=== PATIENT | female | born 1990 | race American Indian/Alaskan Native ===

== ENCOUNTER 2018-05-10 07:32 | Emergency (ER) | payer MEDICAID ==
[2018-05-10 07:34] VITALS: BMI 24.8
[2018-05-10 07:49] VITALS: BP 121/96
[2018-05-10 08:07] LABS: BASO # 0.02 K/mm3 (0.0-2.0); BASO % 0.2 % (0.0-3.0); EOS # 0.2 (0.0-0.7); EOS % 2.1 % (1.5-5.0); GRAN # 7.63 (1.4-6.5); HEMOGLOBIN 9.7 g/dL (12.0-16.0); LYMPH # 1.9 (1.2-3.4); LYMPH % 19.1 % (22.0-35.0); MEAN CELL VOLUME 83.3 fl (80.0-105.0); MEAN CORPUSCULAR HEMOGLOBIN 26.1 pg (25.0-35.0); MEAN CORPUSCULAR HGB CONC 31.4 g/dl (31.0-37.0); MEAN PLATELET VOLUME 9.5 fl (7.0-11.0); MONO # 0.4 (0.1-0.6); MONO % 3.6 % (1.0-6.0); RBC 3.71 10^6/uL (3.5-6.1); RED CELL DISTRIBUTION WIDTH 18.8 % (11.5-14.5); WHITE BLOOD COUNT 10.2 10^3/uL (4.5-11.0)
--- NOTE | 2018-05-10 08:10 | ED PDOC ---
Arrival/HPI - General Chief Complaint: Back Pain Time Seen by Provider: 05/10/18 07:51 Historian: Patient - History of Present Illness Narrative History of Present Illness (Text): 27 year old female w/ PMH of hypothyroidism, mitral valve prolapse, and C- Section (1 month ago) presents to the emergency department with a complaint of 1 month duration mid- back pain and sudden onset chest pain this morning. The patient notes that she has been experiencing the back pain s/p C- section 1 month ago. She notes that she woke up with mid-sternal chest pain this morning that radiates to both sides of the chest. She is unable to identify any triggers of the chest pain. She states that she took Tylenol this morning, but vomited twice shortly after with no alleviation in her symptoms. She also reports mild shortness of breath. She denies fevers, chills, headache, dizziness, dyspnea on exertion, cough, abdominal pain, nausea,diarrhea, neck pain, urinary/bowel changes, or any other complaint. Time/Duration: > month, Other (6AM ) Symptom Onset: Gradual Symptom Course: Worsening Quality: Aching Severity Level: Moderate Activities at Onset: Light Context: Home Past Medical History - Provider Review Nursing Documentation Reviewed: Yes - Travel History Have you recently traveled outside [place] w/in the past 3 mons?: No - Infectious Disease Hx of Infectious Diseases: None - Endocrine/Metabolic Hx Hypothyroidism: Yes - Integumentary Other/Comment: Epidermolysis bullosa - Psychiatric Hx Substance Use: No - Surgical History Hx Section: Yes Family/Social History - Physician Review Nursing Documentation Reviewed: Yes Family/Social History: No Known Family HX Smoking Status: Never Smoked Hx Alcohol Use: No Hx Substance Use: No Allergies/Home Meds Allergies/Adverse Reactions: Allergies No Known Allergies Allergy (Verified 05/10/18 07:34) Review of Systems - Physician Review All systems were reviewed & negative as marked: Yes - Review of Systems Constitutional: absent: Fevers Respiratory: SOB Cardiovascular: Chest Pain. absent: CANO Gastrointestinal: Vomiting. absent: Abdominal Pain, Stool Changes, Diarrhea, Nausea Genitourinary Female: absent: Urine Output Changes Musculoskeletal: Back Pain. absent: Neck Pain Neurological: absent: Headache Physical Exam Vital Signs Reviewed: Yes Vital Signs Temp Pulse Resp BP Pulse Ox 05/10/18 07:49 98.8 F 90 18 121/96 H 99 Temperature: Afebrile Blood Pressure: Hypertensive Pulse: Regular Respiratory Rate: Normal Appearance: Positive for: Well-Appearing, Non-Toxic, Comfortable Pain Distress: None Mental Status: Positive for: Alert and Oriented X 3 - Systems Exam Head: Present: Atraumatic, Normocephalic Pupils: Present: PERRL Extroacular Muscles: Present: EOMI Conjunctiva: Present: Normal Mouth: Present: Moist Mucous Membranes Neck: Present: Normal Range of Motion Respiratory/Chest: Present: Clear to Auscultation, Good Air Exchange, Tender to Palpation (Reproducible anterior left chest wall tenderness.). No: Respiratory Distress, Accessory Muscle Use, Tachypneic Cardiovascular: Present: Regular Rate and Rhythm, Normal S1, S2. No: Murmurs, Tachycardic Abdomen: Present: Tenderness (Tenderness to palpation of the epigastrium/ Mild lower abdominal tenderness due to surgery. ). No: Distention, Peritoneal Signs Back: Present: CVA Tenderness (Bilateral CVA tenderness.) Upper Extremity: Present: Normal Inspection. No: Cyanosis, Edema Lower Extremity: Present: Normal Inspection. No: Edema Neurological: Present: GCS=15, CN II-XII Intact, Speech Normal Skin: Present: Warm, Dry, Normal Color. No: Rashes Psychiatric: Present: Alert, Oriented x 3, Normal Insight, Normal Concentration Medical Decision Making ED Course and Treatment: 05/10/18 08:13 Impression: A 27 year old female presents to the emergency department with a complaint of 1 month duration back pain and sudden onset chest pain this morning. Differential Diagnosis included but are not limited to: Gastritis Pancreatitis Costalchondritis Pericarditis Myocarditis Cardiomyopathy PE Plan: -- Abdomen/Pelvis CT -- EKG -- Chest X-ray -- Labs -- Urinalysis -- Pepcid and Toradol -- Reassess and disposition Prior Visits: Notes and results from previous visits were reviewed. Progress Notes: 05/10/18 08:47 Labs reviewed with slight anemia noted as well as troponin and BNP WNL. Pending CXR and CT a/p 05/10/18 09:50 Patient reevaluated and feels much better. CXR reviewed and shows no i nfiltrates. UA shows trace esterase. Will treat UTI. Pending CT imaging results. 05/10/18 10:45 Patient feels better and is in no acute distress. I have discussed the results and plan with the patient, who expresses understanding. Patient in agreement with plan to be discharged home. Patient is stable for discharge. Patient was instructed to follow up with physician or return if symptoms worsen or new concerning symptoms arise. - Lab Interpretations I have reviewed the lab results: Yes - RAD Interpretation Narrative RAD Interpretations (Text): 05/10/18 10:09 PROCEDURE: CT Abdomen and Pelvis without intravenous contrast Dictator : Rinku Andres MD Report Date : 05/10/2018 09:54:40 IMPRESSION: Minimal bilateral wispy medullary pattern of hyperdensity possibly representing early medullary sponge kidney. Small umbilical hernia. PROCEDURE: CT Chest with contrast (Pulmonary Angiogram) Dictator : Rinku Andres MD Report Date : 05/10/2018 10:09:48 IMPRESSION: Unremarkable CT pulmonary angiogram. No pulmonary embolus. Chest X-ray Dictator : Kole Desir MD Report Date : 05/10/2018 10:41:44 IMPRESSION: No active disease. Radiology Orders: 05/10/18 07:51 CHEST PORTABLE [RAD] Stat 05/10/18 08:03 ABDOMEN & PELVIS [ABD & PELVIS IV CONTRAST ONLY] [CT] Stat - EKG Interpretation EKG Interpretation (Text): 05/10/18 07:42 EKG: Ordered, reviewed, and independently interpreted the EKG. Rate : 81 BPM Rhythm : NSR Interpretation : No QT prolongation, no ST elevations or T wave inversions. Interpreted by ED Physician: Yes Type: 12 lead EKG - Medication Orders Current Medication Orders: Famotidine (Pepcid) 20 mg IVP STAT STA Stop: 05/10/18 08:03 Discontinued Medications Ketorolac Tromethamine (Toradol) 30 mg IVP STAT STA Stop: 05/10/18 07:52 - Scribe Statement The provider has reviewed the documentation as recorded by the Jabari Moss Provider Scribe Attestation: All medical record entries made by the Scribe were at my direction and personally dictated by me. I have reviewed the chart and agree that the record accurately reflects my personal performance of the history, physical exam, medical decision making, and the department course for this patient. I have also personally directed, reviewed, and agree with the discharge instructions and disposition. Disposition/Present on Arrival - Present on Arrival Any Indicators Present on Arrival: No History of DVT/PE: No History of Uncontrolled Diabetes: No Urinary Catheter: No History of Decub. Ulcer: No History Surgical Site Infection Following: None - Disposition Have Diagnosis and Disposition been Completed?: Yes Diagnosis: Gastritis, UTI (urinary tract infection) Disposition: HOME/ ROUTINE Disposition Time: 10:15 Patient Plan: Discharge Condition: IMPROVED Discharge Instructions (ExitCare): Urinary Tract Infection, Adult (DC), Gastritis (DC) Print Language: YAKUT Additional Instructions: All medical record entries made by the Cruzibluis m were at my direction and personally dictated by me. I have reviewed the chart and agree that the record accurately reflects my personal performance of the history, physical exam, medical decision making, and the department course for this patient. I have also personally directed, reviewed, and agree with the discharge instructions and disposition. 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 at [facility] [place] [Outside] - Follow up with primary Rhianna Olsen MD [Medical Doctor] - Follow up with primary Forms: [employer] (Romansh)
[2018-05-10 08:15] LABS: ALB/GLOB RATIO 1.2 (1.1-1.8); ALBUMIN 4.2 g/dL (3.0-4.8); ALT/SGPT 23 U/L (7-56); AST/SGOT 51 U/L (14-36); BLOOD UREA NITROGEN 15 mg/dL (7-21); CALCIUM 9.1 mg/dL (8.4-10.5); GFR NON-AFRICAN AMERICAN > 60
[2018-05-10 08:32] LABS: B-TYPE NATRIURETIC PEPTIDE 21.6 pg/mL (0-450); TROPONIN I < 0.01 ng/mL
[2018-05-10] MEDS ORDERED: Iohexol 350 MG/100 ML VIAL ONE (08:53)
[2018-05-10 09:01] LABS: PH,URINE 7.5 (4.7-8.0); URINE BILIRUBIN NEGATIVE (NEGATIVE); URINE BLOOD NEGATIVE (NEGATIVE); URINE GLUCOSE (UA) NEGATIVE (NEGATIVE); URINE LEUKOCYTE ESTERASE TRACE Leu/uL (NEGATIVE); URINE PROTEIN NEGATIVE mg/dL (<30 mg/dL); URINE UROBILINOGEN 0.2 E.U./dL (<1 E.U./dL)
[2018-05-10 09:04] LABS: URINE APPEARANCE CLEAR (CLEAR); URINE COLOR YELLOW (YELLOW)
[2018-05-10 09:13] LABS: URINE AMORPHOUS SEDIMENT SMALL; URINE BACTERIA MANY (NEG)
[2018-05-10 09:30] LABS: FREE T4 0.96 ng/dL (0.78-2.19)
--- NOTE | 2018-05-10 09:58 | CT ---
Date of service: 05/10/2018 PROCEDURE: CT Abdomen and Pelvis without intravenous contrast HISTORY: b/l CVA tenderness COMPARISON: None. TECHNIQUE: Technique. Contrast dose: Radiation dose: Total exam DLP = 247.28 mGy-cm. This CT exam was performed using one or more of the following dose reduction techniques: Automated exposure control, adjustment of the mA and/or kV according to patient size, and/or use of iterative reconstruction technique. FINDINGS: LOWER THORAX: Unremarkable. LIVER: Unremarkable. No gross lesion or ductal dilatation. GALLBLADDER AND BILE DUCTS: Unremarkable. PANCREAS: Unremarkable. No gross lesion or ductal dilatation. SPLEEN: Unremarkable. ADRENALS: Unremarkable. No mass. KIDNEYS AND URETERS: Minimal bilateral wispy medullary pattern of hyperdensity possibly representing early medullary sponge kidney. No hydronephrosis. No solid mass. VASCULATURE: Unremarkable. No aortic aneurysm. No aortic atherosclerotic calcification or mural plaque present. BOWEL: Unremarkable. No obstruction. No gross mural thickening. APPENDIX: Unremarkable. Normal appendix. PERITONEUM: Unremarkable. No free fluid. No free air. LYMPH NODES: Unremarkable. No enlarged lymph nodes. BLADDER: Unremarkable. REPRODUCTIVE: Unremarkable. BONES: No acute fracture. OTHER FINDINGS: Small umbilical hernia. IMPRESSION: Minimal bilateral wispy medullary pattern of hyperdensity possibly representing early medullary sponge kidney. Small umbilical hernia.
--- NOTE | 2018-05-10 10:13 | CT ---
Date of service: 05/10/2018 PROCEDURE: CT Chest with contrast (Pulmonary Angiogram) HISTORY: SOB w/ reproducible chest pain, elevated D-dimer COMPARISON: None available. TECHNIQUE: Axial computed tomography images were obtained of the chest in the pulmonary arterial phase of enhancement. Coronal and sagittal reformatted images were created and reviewed. Intravenous contrast dose: Radiation dose: Total exam DLP = 170.12 mGy-cm. This CT exam was performed using one or more of the following dose reduction techniques: Automated exposure control, adjustment of the mA and/or kV according to patient size, and/or use of iterative reconstruction technique. FINDINGS: PULMONARY ARTERIES: Unremarkable. No pulmonary embolism. AORTA: No acute findings. No thoracic aortic aneurysm. No aortic atherosclerotic calcification or mural plaque present. LUNGS: Unremarkable. No nodule, mass or pulmonary consolidation. PLEURAL SPACES: Unremarkable. No effusion or pneumothorax. HEART: Unremarkable. No cardiomegaly. No significant pericardial effusion. LYMPH NODES: No lymphadenopathy. BONES, CHEST WALL: Unremarkable. No fracture or destructive lesion OTHER FINDINGS: Unremarkable. IMPRESSION: Unremarkable CT pulmonary angiogram. No pulmonary embolus.
--- NOTE | 2018-05-10 10:45 | RAD ---
Date of service: 05/10/2018 HISTORY: chest pain COMPARISON: FINDINGS: LUNGS: No active pulmonary disease. PLEURA: No significant pleural effusion identified, no pneumothorax apparent. CARDIOVASCULAR: No aortic atherosclerotic calcification present. Normal cardiac size. No pulmonary vascular congestion. OSSEOUS STRUCTURES: No significant abnormalities. VISUALIZED UPPER ABDOMEN: Normal. OTHER FINDINGS: None. IMPRESSION: No active disease.
[2018-05-10 10:49] VITALS: PULSE 80; RESP 19; TEMP 98.2; O2SAT 98
--- NOTE | 2018-05-11 08:13 | CARD ---
APPROVED REPORT Date of service: 05/10/2018 EKG Measurement Heart [id number] <Conclusion> Normal sinus rhythm Normal ECG
== END 2018-05-10 10:49 | disposition home or self-care (01) ==
LOC: ED 07:32
DX: N39.0 Urinary tract infection, site not specified (principal); K29.70 Gastritis, unspecified, without bleeding; E03.9 Hypothyroidism, unspecified
CPT/HCPCS: 71045; 71275; 74176; 80053; 81001; 83690; 83735; 83880; 84439; 84443; 84484; 85025; 85378; 87086; 93005; 96374; 96375; 99283; J1885; Q9967